=== PATIENT | male | born 1950 | race Caucasian/White ===

== ENCOUNTER → 2018-01-30 | Outpatient (CLI) | payer MEDICARE, BC ==
[2018-01-30 08:17] LABS: ABSOLUTE EOSINOPHILS # (AUTO) 0.4 10^3/uL (0.0-0.6); ABSOLUTE MONOCYTES (AUTO) 0.7 10^3/uL (0.1-1.4); ABSOLUTE NEUT (AUTO) 3.8 10^3/uL (1.7-8.2); BASOPHILS % (AUTO) 0.5 % (0-2); HEMOGLOBIN 15.3 g/dL (13.5-17.0); TOTAL CELLS COUNTED % (AUTO) 100 %
[2018-01-30 08:21] LABS: INTERNATIONAL RATION (INR) 0.93; PROTHROMBIN TIME 13.1 SEC (11.4-15.4)
[2018-01-30 08:27] LABS: ABSOLUTE LYMPHOCYTES (AUTO) 1.9 10^3/uL (0.5-4.7); EOSINOPHILS % (AUTO) 5.6 % (0-6); HEMATOCRIT 44.2 % (37.9-51.0); LYMPHOCYTES % (AUTO) 27.9 % (13-45); MEAN CORPUSCULAR HEMOGLOBIN 31.3 pg (27.0-33.4); MEAN CORPUSCULAR HGB CONC 34.5 g/dL (32.0-36.0); MEAN CORPUSCULAR VOLUME 91 fl (80-97); MONOCYTES % (AUTO) 9.7 % (3-13); PLATELET COUNT 264 10^3/uL (150-450); RED BLOOD COUNT 4.88 10^6/uL (4.35-5.55); RED CELL DISTRIBUTION WIDTH 13.6 % (11.5-14.0); SEGMENTED NEUTROPHILS % (AUTO) 56.3 % (42-78); WHITE BLOOD COUNT 6.8 10^3/uL (4.0-10.5)
[2018-01-30 08:36] LABS: ANION GAP 11 (5-19); BLOOD UREA NITROGEN 13 mg/dL (7-20); CALCIUM 10.1 mg/dL (8.4-10.2); CARBON DIOXIDE 24 mmol/L (22-30); CHLORIDE 100 mmol/L (98-107); GLUCOSE 114 mg/dL (75-110); POTASSIUM 4.6 mmol/L (3.6-5.0); SODIUM 135.4 mmol/L (137-145)
== END ==
LOC: OD 07:36
PROVIDERS: ATTEND Internal Medicine Critical Care Medicine
DX: R91.1 Solitary pulmonary nodule (principal); R59.0 Localized enlarged lymph nodes; Z87.891 Personal history of nicotine dependence; R05 Cough; J44.9 Chronic obstructive pulmonary disease, unspecified; Z80.0 Family history of malignant neoplasm of digestive organs; R91.8 Other nonspecific abnormal finding of lung field
CPT/HCPCS: 36415; 80048; 85025; 85610

== ENCOUNTER 2018-01-31 05:57 | Day surgery (SDC) | payer MEDICARE, BC ==
[~2018-01-31 05:57] MED LIST: DEXTROSE 5%-1/2 NORMAL SALINE 1,000 ML IV PRN
--- NOTE | 2018-01-31 07:12 | EKG REPORT ---
SEVERITY:- ABNORMAL ECG - SINUS RHYTHM MULTIPLE ATRIAL PREMATURE COMPLEXES PROBABLE LEFT ATRIAL ABNORMALITY PROBABLE INFERIOR INFARCT, OLD : Confirmed by: Goldy Saxena MD 31-Jan-2018 07:11:09
[2018-01-31] MEDS ORDERED: LIDOCAINE 2% JELLY 30 ML TUBE ONE (07:25)
[2018-01-31] MEDS ORDERED: EPINEPHRINE INJ/PF 1 MG/1 ML AMPULE ONE (07:26)
[2018-01-31] MEDS ORDERED: NALOXONE HCL INJ/PF 0.4 MG/1 ML SDV ONE (07:26)
[2018-01-31] MEDS ORDERED: ONDANSETRON HCL INJ/PF 4 MG/2 ML SDV ONE (07:27)
[2018-01-31] MEDS ORDERED: FLUMAZENIL INJ 0.5 MG/5 ML VIAL ONE (07:27)
[2018-01-31] MEDS ORDERED: EPINEPHRINE INJ 1 MG/10 ML DISP.SYRIN ONE (07:27)
[2018-01-31] MEDS: LIDOCAINE 2% INJ (20 MG/ML) 20 ML MDV ONE ×2 (08:30→08:44)
[2018-01-31] MEDS: MIDAZOLAM 2 MG/2 ML INJ ONE ×12 (08:50→09:25)
[2018-01-31] MEDS: FENTANYL CITRATE INJ/PF 100 MCG/2 ML AMPUL ONE ×5 (08:55→09:19)
--- NOTE | 2018-01-31 11:44 | OPERATIVE REPORT E ---
Operative Report NAME: NICOLAS SUAZO : 1950 AGE: 67Y DATE OF SURGERY: 01/31/2018 ROOM: HISTORY: A 67-year-old white male who came in with a chronic cough, severe, with left lower lobe nodule and a right lower lobe lung mass. He came in for a flexible bronchoscopy with possible biopsy right lower lobe. Consent was obtained from the patient. The patient verbalized indications, risks, and potential complications of procedure. SURGEON: MARJORIE BAUMANN M.D. PROCEDURE: Patient was connected to the sales account executive, pulse oximetry, respiratory monitor, blood pressure and oxygen saturation monitor. Patient was given 2% lidocaine solution via nebulizer, and 2% lidocaine solution 3 mL via atomizer, and 2% lidocaine gel was applied on the posterior pharyngeal wall, and 1% lidocaine solution was given in aliquots of 1 mL,as the flexible bronchoscope was advanced through the vocal cord. 1% lidocaine solution was applied several times on the vocal cord area, supraglottic structures, and trachea, yulissa, and main stem bronchi, left and right main stem bronchi, to a total dose of 29 mL of 2% lidocaine solution. Versed was given at increments of 0.5 mg IV, total dose of 6 mg and fentanyl was given in increments of 25 mcg, total dose of 125 mg IV. The flexible bronchoscope inserted through the mouthguard and advanced into the vocal cords and airways. There was severe coughing noted and 1% lidocaine solution was applied to the trachea and main stem bronchi as the flexible bronchoscope was advanced. Ventolin was given also in increments of 0.25 up to the patient's limits for 2% lidocaine solution. The left main stem bronchi, secondary bronchi, tertiary bronchi, and segmental bronchi on the left upper lobe, apical superior, and superior lingula, inferior lingula, and the anterior medial, lateral, posterior, and superior basal bronchi on the left lung appeared patent and normal. No endobronchial lesions noted. Right main stem bronchus appeared normal. Secondary bronchi showed some corrugated lesions anteriorly. The bronchus to the right middle lobe appeared patent. The bronchus to the right upper lobe appeared patent. Unable to biopsy the lesion because we used the maximum dose of lidocaine solution, and patient was still severely coughing. Patient may need to be endotracheally intubated with anesthesia support during the biopsy. Consent for possible general anesthesia and endotracheal intubation were not obtained. OR schedule with anesthesia department needs to be obtained. We will plan to reschedule the flexible bronchoscopy with Anesthesia in the next few days. We will send the bronchial washing for cytology, AFB cultures and smear, and the fungal cultures and bronchial cultures. DICTATING PHYSICIAN: MARJORIE BAUMANN MD,COMPA,MPH [id number] PHY#: [id number] ID: [id number] JOB#: [id number] ACCT: [id number] cc:MARJORIE BAUMANN M.D. > MTDD
[2018-01-31 13:16] VITALS: BP 123/78
--- NOTE | 2018-02-04 20:54 | DISCHARGE SUMMARY E ---
Discharge Summary NAME: NICOLAS SUAZO : 1950 AGE: 67Y ADMITTED: 01/31/2018 DISCHARGED: 01/31/2018 HOSPITAL COURSE: The patient is a 67-year-old male who came in with chronic cough, severe with left lower lobe nodule and a right lower mass and mediastinal lymphadenopathy. Patient underwent flexible bronchoscopy on 01/31/2018 with proximal biopsy on the right lower lobe mass. Patient was maxed out on 2% Lidocaine solution and IV Versed and IV fentanyl, still presenting with severe coughing episodes and discomfort. Patient's biopsy was postponed and patient was planned to be rescheduled for endotracheal intubation and under deeper sedation with either IV propofol or general anesthesia with anesthesiology support. Patient was discharged home a few hours later following flexible bronchoscopy. There was no adverse event during the procedure. Patient remained stable during the procedure. DICTATING PHYSICIAN: MARJORIE BAUMANN M.D. [id number] PHY#: [id number] ID: [id number] JOB#: [id number] ACCT: [id number] cc:MARJORIE BAUMANN M.D. >
== END 2018-01-31 11:05 | disposition home or self-care (01) ==
LOC: OROUT 05:57
PROVIDERS: ATTEND Internal Medicine Critical Care Medicine
DX: R91.1 Solitary pulmonary nodule (principal); R05 Cough; Z79.51 Long term (current) use of inhaled steroids
CPT/HCPCS: 31624; 36415; 84484; 87015; 87070; 87077; 87101; 87116; 87205; 87206; 88104; 93005; 93010; J0171; J2250; J2310; J2405; J3010; J3490

== ENCOUNTER → 2018-02-12 | Outpatient (CLI) | payer MEDICARE, BC ==
--- NOTE | 2018-02-14 08:52 | RADIOLOGY REPORT (SQ) ---
EXAM DESCRIPTION: PET CT SKULL/THIGH COMPLETED DATE/TIME: 02/12/2018 11:13 pm REASON FOR STUDY: SOLITARY PULMONARY NODULE R91.1 SOLITARY PULMONARY NODULE COMPARISON: CT chest [facility] 01/22/2008 RADIONUCLIDE AND DOSE: 12.5 mCi F18 FDG The route of agent administration: Intravenous FASTING BLOOD SUGAR: 102 mg/dl CONTRAST TYPE AND DOSE: No CT contrast given. TECHNIQUE: Blood glucose level was verified. Above dose of FDG was injected intravenously. 2-D seg mented attenuation correction images were obtained from the base of the skull to the midthighs. Nonc ontrast CT images were obtained for attenuation correction and fusion with emission images. CT image s were performed without oral or intravenous contrast and are not sensitive for parenchymal lesions. A series of overlapping emission PET images were obtained. [facility] by the radiologist. Images stored on PACS. LIMITATIONS: None. FINDINGS: HEAD AND NECK: Right supraclavicular hypermetabolic lymph nodes are present as follows: Right supraclavicular 1.5 x 1.2 cm axial image 71, SUV 5.2. Right supraclavicular 0.9 x 0.8 cm node axial image 77, SUV 2.7 CHEST: A right lower hilar/right lower lobe mass is present at the level of the bronchus intermedius extending into the right lower lobe. This measures about 6.7 x 3.2 cm in size on axial image 108 wit h SUV of 7.2. A spiculated left lower lobe nodule is present 2.4 x 2.2 cm in size on axial image 115, SUV 9.2. There is extensive mediastinal adenopathy, index nodes are as follows: Right paratracheal 2.8 x 1.7 cm lymph node axial image 81, SUV 6.2 Azygos lymph node 3.6 x 3.2 cm axial image 95, SUV 8.2 Sub- carinal 3.5 x 2 cm lymph node axial image 105 SUV, 7.7. There is a small focus of airspace disease in the right lower lobe posterior costophrenic sulcus with SUV 2.3. ABDOMEN AND PELVIS: In the posterior right lobe liver, a 2 cm liver mass is present on axial image 13 7 with SUV 3.7. PROXIMAL LOWER EXTREMITIES: No areas of abnormal metabolic activity in the soft tissues of the lower extremities. BONES: No abnormal metabolic activity in the visualized skeleton. ADDITIONAL CT FINDINGS: Heavily calcified coronary arteries. Calcified granulomas in the spleen. Sm all hiatal hernia. Diffuse degenerative changes throughout the spine. OTHER: Liver background activity 1.8 SUV. Blood pool background activity 1.4 SUV IMPRESSION: Malignant appearing ill-defined mass in the right lower hilum/right lower lobe Malignant appearing mass in the left lower lobe Hypermetabolic right supraclavicular and mediastinal adenopathy Hypermetabolic liver lesion, posterior right lobe liver TECHNICAL DOCUMENTATION: JOB ID: [id number] [employer]- All Rights Reserved Reading location - IP/workstation name: [email or web address]
== END ==
LOC: RAD 18:03
PROVIDERS: ATTEND Internal Medicine Critical Care Medicine
DX: R91.1 Solitary pulmonary nodule (principal); R91.8 Other nonspecific abnormal finding of lung field; R59.0 Localized enlarged lymph nodes; J43.9 Emphysema, unspecified; R05 Cough; Z87.891 Personal history of nicotine dependence; Z80.0 Family history of malignant neoplasm of digestive organs
CPT/HCPCS: 78815; A9552